=== PATIENT | male | born 1975 | race Two or more races ===

== ENCOUNTER 2020-11-16 08:15 | Inpatient (IN) | payer BC ==
[2020-11-29] MEDS ORDERED: cefOXitin 2 GM Vial ONE (06:46)
[2020-11-29] MEDS ORDERED: Succinylcholine 200 MG/10 ML MDV ONE (07:07)
[2020-11-29] MEDS ORDERED: Neostigmine Methylsulfate 1 MG/ML 5 ML Syringe ONE (07:07)
[2020-11-29] MEDS ORDERED: Dexamethasone 4 MG/ML SDV ONE (07:07)
[2020-11-29] MEDS ORDERED: Glycopyrrolate 0.2 MG/ML 5 ML MDV ONE (07:07)
[2020-11-29] MEDS ORDERED: Ondansetron 4 MG/2 ML SDV ONE (07:07)
[2020-11-29] MEDS ORDERED: fentaNYL 250 MCG/5 ML SDV ONE ×2 (07:07→09:27)
[2020-11-29] MEDS ORDERED: Propofol 200 MG/20 ML SDV ONE (07:07)
[2020-11-29] MEDS ORDERED: Rocuronium 50 MG/5 ML Vial ONE ×3 (07:07→11:08)
[2020-11-29] MEDS ORDERED: Scopolamine 1.5 MG Transdermal Patch TOP SCH (07:15)
[2020-11-29] MEDS ORDERED: Acetaminophen 500 MG Tab PO ONE (07:15)
[2020-11-29] MEDS ORDERED: Celecoxib 200 MG Cap PO ONE (07:15)
[2020-11-29] MEDS ORDERED: Dextrose 5%-Lactated Ringers 1,000 ML IV SCH ×2 (07:30→13:15)
[2020-11-29] MEDS ORDERED: cefOXitin 2 GM Vial IRR ONE ×3 (07:39→11:18)
[2020-11-29 07:56] LABS: HEMOGLOBIN A1C 7.5 % (4.5-6.2)
[2020-11-29] MEDS ORDERED: Albuterol/Ipratropium 3.0-0.5 MG/3 ML Neb Soln NEB ONE (08:00)
[2020-11-29] MEDS: cefOXitin 2 GM in Sodium Chloride 0.9% 50 ML IV ONE ×2 (08:45→08:46)
[2020-11-29] MEDS ORDERED: Magnesium Sulfate 7 GM in Sodium Chloride 0.9% 250 ML IV ONE (09:00)
[2020-11-29] MEDS ORDERED: Ketamine 500 MG/5 ML MDV IV SCH (09:00)
[2020-11-29] MEDS ORDERED: Ketamine 50 MG in Sodium Chloride 0.9% 49.5 ML IV SCH (09:00)
[2020-11-29] MEDS ORDERED: Lactated Ringers 1,000 ML ONE (09:02)
[2020-11-29] MEDS ORDERED: Sugammadex Sodium 200 MG/2 ML VIAL ONE (11:47)
[2020-11-29] MEDS ORDERED: hydrOXYzine HCL 100 MG/2 ML SDV IM ONE (12:08)
[2020-11-29] MEDS: Lactated Ringers 1,000 ML IV SCH ×2 (13:10→23:21)
[2020-11-29] MEDS ORDERED: Cyclobenzaprine 10 MG Tab PO PRN (13:12)
[2020-11-29] MEDS ORDERED: Albuterol/Ipratropium 3.0-0.5 MG/3 ML Neb Soln INH PRN (14:00)
[2020-11-29] MEDS ORDERED: diphenhydrAMINE 50 MG/ML SDV IVPUSH PRN (14:00)
[2020-11-29] MEDS ORDERED: Calcium Gluconate 10% 1 GM/10 ML SDV IVPUSH PRN (14:00)
[2020-11-29] MEDS ORDERED: 50% Dextrose in Water 50 ML Syringe IVPUSH PRN (14:00)
[2020-11-29] MEDS ORDERED: Metoclopramide 10 MG/2 ML SDV IVPUSH PRN (14:00)
[2020-11-29] MEDS ORDERED: Labetalol 20 MG/4 ML Syringe IVPUSH PRN (14:00)
[2020-11-29] MEDS ORDERED: Glucagon,Human Recombinant 1 MG Vial IM PRN (14:00)
[2020-11-29] MEDS ORDERED: Insulin Lispro 100 Unit/ML 3 ML KwikPen SUBCUT SCH (14:00)
[2020-11-29] MEDS ORDERED: HYDROmorphone 0.5 MG/0.5 ML Syringe IVPUSH PRN (14:00)
[2020-11-29] MEDS ORDERED: Acetaminophen 500 MG Tab PO PRN (14:00)
[2020-11-29] MEDS: Ondansetron 4 MG/2 ML SDV IVPUSH PRN (14:42)
[2020-11-29] MEDS: Albuterol/Ipratropium 3.0-0.5 MG/3 ML Neb Soln INH SCH ×2 (14:54→22:23)
[2020-11-29] MEDS: cefOXitin 2 GM in Sodium Chloride 0.9% 50 ML IV SCH ×2 (15:40→22:23)
[2020-11-29] MEDS ORDERED: Pantoprazole 40 MG Vial IVPUSH SCH (16:00)
[2020-11-29] MEDS ORDERED: MVI, Adult with Vitamin K 10 ML, Thiamine 200 MG, Zinc/Copper/Manganese/Selenium 1 ML i... IV SCH ×4 (16:00)
[2020-11-29] MEDS: Acetaminophen 500 MG Tab PO SCH (16:45)
[2020-11-29] MEDS: Heparin Sodium 5,000 Units/ML Vial SUBCUT SCH (16:45)
[2020-11-29] MEDS: Insulin Lispro 100 Unit/ML 3 ML KwikPen SUBCUT SCH ×2 (17:06→22:22)
[2020-11-29] MEDS: hydrOXYzine HCL 100 MG/2 ML SDV IM PRN ×2 (17:13→22:33)
[2020-11-29] MEDS: HYDROmorphone 1 MG/ML Syringe IV PRN (19:01)
[2020-11-29] MEDS: oxyCODONE 5 MG Tab PO PRN (20:19)
[2020-11-29] MEDS: traZODone 50 MG Tab PO SCH (22:25)
[2020-11-30] MEDS: Heparin Sodium 5,000 Units/ML Vial SUBCUT SCH (00:40)
[2020-11-30] MEDS: Acetaminophen 500 MG Tab PO SCH (00:40)
[2020-11-30] MEDS ORDERED: Acetaminophen Soln 650 MG/20.3 ML UD Cup PO PRN (01:08)
[2020-11-30] MEDS ORDERED: Iopamidol 612 MG/ML 50 ML SDV PO STA (01:52)
[2020-11-30] MEDS: Ondansetron 4 MG/2 ML SDV IVPUSH PRN ×2 (04:33→22:51)
[2020-11-30] MEDS: cefOXitin 2 GM in Sodium Chloride 0.9% 50 ML IV SCH ×3 (04:47→15:13)
[2020-11-30] MEDS: HYDROmorphone 1 MG/ML Syringe IV PRN (04:47)
[2020-11-30] MEDS: Insulin Lispro 100 Unit/ML 3 ML KwikPen SUBCUT SCH ×4 (05:05→22:00)
[2020-11-30] MEDS: Albuterol/Ipratropium 3.0-0.5 MG/3 ML Neb Soln INH SCH ×4 (07:11→21:16)
[2020-11-30] MEDS ORDERED: Ondansetron 4 MG Tab.DIS PO PRN (07:11)
[2020-11-30] MEDS: oxyCODONE 5 MG Tab PO PRN ×3 (07:34→19:13)
[2020-11-30] MEDS: Acetaminophen Soln 650 MG/20.3 ML UD Cup PO SCH ×2 (07:39→15:08)
[2020-11-30] MEDS ORDERED: Acetaminophen Soln 160 MG/5 ML UD Cup PO SCH (08:00)
--- NOTE | 2020-11-30 08:17 | PN ---
DATE OF SERVICE: 11/30/2020 SUBJECTIVE: Isi (Max) is postop day 1 following a sleeve gastrectomy. His upper GI was normal. Vital signs have been stable. Oral intake 860. Urine output 3835 via Sun catheter and CARLOS ENRIQUE put out 17 mL of a light red drainage. Pain has been controlled and he was given IV Dilaudid and oxycodone in addition to energy protocol. OBJECTIVE: GENERAL: Cat is a pleasant 45-year-old male. He is alert and oriented. VITAL SIGNS: Admission height 5 feet 10 inches, weight 503 pounds. BMI is 72. TPR 97.7, 77, 18, blood pressure 130/64. HEENT: Negative. NECK: Supple. HEART: Regular rate and rhythm. LUNGS: Clear. ABDOMEN: Dressings dry and intact. Abdominal binder is on, and CARLOS ENRIQUE drain as above. EXTREMITIES: Without peripheral edema. ASSESSMENT: Diagnostic laparoscopy with: 1. Lysis of adhesions. 2. Sleeve gastrectomy, first stage of duodenal switch. 3. Needle liver biopsy. 4. Placement of Vicryl mesh. POSTOPERATIVE DIAGNOSES: Morbid obesity with excess of omental fat precluding visualization of the duodenum, marked hepatomegaly, and extensive adhesions to periumbilical mesh. Date of procedure 11/29/2020. Surgeon, Rod Holland MD. PLAN: 1. Dressing off. May shower. 2. Step-2 gastric bypass diet without cereal. 3. Discontinue D5 LR IV. 4. Lactated Ringer. Decrease rate to 100 mL/hr. 5. Discontinue Sun catheter. 6. Discontinue heparin. 7. Lovenox 100 mg daily. 8. Discontinue cardiac monitoring. 9. Communication order, 3 med cups per hour. 10.Atarax 50 mg q.4 hours p.r.n. pain. 11.Communication order to use energy protocol, Vistaril, or Atarax for pain before narcotics, and use narcotics when everything else is tried first, and use Flexeril for back pain instead of oxycodone. Encouraged ambulation. Cat was unable to use his incentive spirometer. He was taught how to use it. He states he did not use it during the night. 12.Lovenox 100 subcu will be sent to his pharmacy in case he would need prior authorization. This will be checked on at clinic. REVIEW OF SYSTEMS: Remainder of review of systems negative for any pertinent positives or negatives. Eduarda Lund PA-C /[id number]
[2020-11-30] MEDS: SCOPOLAMINE PATCH CHECK TOP SCH (09:03)
[2020-11-30] MEDS: buPROPion 150 MG Tab.ER PO SCH (09:03)
[2020-11-30] MEDS: Celecoxib 200 MG Cap PO SCH ×2 (09:03→21:13)
--- NOTE | 2020-11-30 09:04 | CR ---
[facility] HISTORY: Post gastric surgery FINDINGS: Patient swallowed water-soluble contrast. Upright views of the abdomen show no evidence of extravasation or obstruction. There is contrast through the distal stomach and duodenum. There is a surgical drain left upper quadrant IMPRESSION: Status post gastric surgery No extravasation or obstruction seen
[2020-11-30] MEDS: Losartan 50 MG Tab PO SCH (09:05)
[2020-11-30] MEDS: Enoxaparin 100 MG/1 ML Syringe SUBCUT SCH (09:07)
[2020-11-30] MEDS: hydrOXYzine HCl 25 MG Tab PO PRN ×3 (09:12→22:35)
[2020-11-30] MEDS: traMADol 50 MG Tab PO PRN ×2 (10:40→22:35)
[2020-11-30] MEDS: Lactated Ringers 1,000 ML IV SCH (15:10)
[2020-11-30] MEDS ORDERED: MVI, Adult with Vitamin K 10 ML, Thiamine 200 MG, Zinc/Copper/Manganese/Selenium 1 ML i... IV SCH ×4 (16:00)
[2020-11-30] MEDS ORDERED: Pantoprazole 40 MG Delayed-Release Granules 1 Packet PO SCH (16:30)
[2020-11-30] MEDS: traZODone 50 MG Tab PO SCH (21:13)
[2020-12-01] MEDS: Acetaminophen Soln 650 MG/20.3 ML UD Cup PO SCH ×2 (00:22→09:19)
[2020-12-01] MEDS: oxyCODONE 5 MG Tab PO PRN ×2 (02:40→09:19)
[2020-12-01] MEDS: Lactated Ringers 1,000 ML IV SCH (03:36)
[2020-12-01] MEDS: Insulin Lispro 100 Unit/ML 3 ML KwikPen SUBCUT SCH ×2 (04:32→09:22)
[2020-12-01] MEDS: Albuterol/Ipratropium 3.0-0.5 MG/3 ML Neb Soln INH SCH ×2 (07:00→12:58)
[2020-12-01] MEDS ORDERED: Cyanocobalamin (Vitamin B12) 1,000 MCG/ML SDV IM ONE (09:00)
[2020-12-01] MEDS: buPROPion 150 MG Tab.ER PO SCH (09:20)
[2020-12-01] MEDS: Losartan 50 MG Tab PO SCH (09:20)
[2020-12-01] MEDS: Enoxaparin 100 MG/1 ML Syringe SUBCUT SCH (09:21)
[2020-12-01] MEDS: SCOPOLAMINE PATCH CHECK TOP SCH (09:21)
[2020-12-01] MEDS: Celecoxib 200 MG Cap PO SCH (09:21)
--- NOTE | 2020-12-11 13:37 | DISCH ---
FINAL DIAGNOSES: 1. Morbid obesity. 2. Marked hepatomegaly. 3. Extensive intraabdominal adhesions. 4. History of type 2 diabetes mellitus. 5. History of hypertension. 6. History of chronic venous ulcers. 7. History of osteoarthritis of knees. 8. History of depression and anxiety. 9. Obstructive sleep apnea. OPERATIVE PROCEDURE: This was done on 11/29, diagnostic laparoscopy with lysis of adhesions with: 1. Sleeve gastrectomy (first stage duodenal switch). 2. Mendel-Cut needle liver biopsy. 3. Placement of Vicryl mesh to limit recurrent adhesion formation between the pelvic and abdominal wall and underlying viscera. SUMMARY: This is a 45-year-old male presenting with longstanding morbid obesity. Preoperatively weight was 504 pounds with a BMI in the 76 range. On the day of surgery, the patient underwent a sleeve gastrectomy, the second stage of the duodenal switch, specifically the duodenal ileostomy and could not be completed at this point due to inability to visualize the duodenum due to large liver and quite massive omentum. He had quite extensive omental adhesions between some abdominal wall mesh used for previous umbilical hernia and the omentum which were taken down and needle biopsies also done to limit recurrent adhesion formation to facilitate subsequent duodenal ileostomy. Vicryl mesh was placed across the area of adhesion formation between abdominal and pelvic wall. Preoperatively, the patient was on Victoza. Postoperatively, he has not required any insulin coverage or Victoza with the blood sugars being in the 130 to 160 range without any specific treatments, so he will go home off on the Victoza. Otherwise, he can continue his usual medications plus oxycodone 5 mg q.4 hours p.r.n., Lovenox 100 mg daily x10 days as prophylaxis against DVT, Atarax 50 mg q.4 hours p.r.n. pain #40. Instructed to hold his vitamins and other supplements until after first appointment, which will be with Eduarda Lund at [facility] on 12/10/2020. We would typically plan to do the second stage of the duodenal switch somewhere in the range of 3 to 6 months, relatively a small amount of weight loss that will facilitate the formation of the duodenal ileostomy which combined with sleeve gastrectomy to a duodenal switch and this should not provide quite a profound amount of weight loss of long-term. /[id number]
--- NOTE | 2020-12-17 15:51 | OR ---
DATE OF PROCEDURE: 11/29/2020 SURGEON: Rod Holland MD PREOPERATIVE DIAGNOSIS: Morbid obesity. POSTOPERATIVE DIAGNOSES: 1. Morbid obesity with excessive omental fat precluding visualization of the duodenum. 2. Marked hepatomegaly. 3. Extensive adhesions to periumbilical mesh. OPERATIVE PROCEDURE: 1. Diagnostic laparoscopy with lysis of extensive adhesions: a. Sleeve gastrectomy (33346). b. Mendel-Cut needle liver biopsy (78242). c. Placement of Vicryl mesh underneath the pre-existing abdominal wall mesh at the site of adhesion formation to limit recurrent adhesion formation between the pelvic and abdominal ibarra and underlying viscera. ANESTHESIA: General. DRIVE IN THEATER ATTENDANT: Eduarda Lund PA-C. INDICATION FOR PROCEDURE: This is a 45-year-old male presenting with extensive morbid obesity with a plan to proceed with a duodenal switch. The plan is to proceed with diagnostic laparoscopy with laparotomy as necessary and formation of duodenal switch. He is aware that particularly in a male that it is not infrequent that the duodenal switch needs to be staged due to inability to satisfactorily mobilize the small bowel up to the level of the duodenum or other problems with regard to the duodenum such as inadequate visualization, in which case the sleeve gastrectomy would be performed today and the duodenal ileostomy sometime later. Potential risks per se including bleeding, infection, leaks from the various GI tract closures, problems with bowel obstruction were all reviewed along with the possibility of cardiopulmonary, septic, or hemorrhagic complications leading to were all discussed and the patient wishes to proceed. DESCRIPTION OF PROCEDURE: The patient was taken to the operating room, placed in a supine position after general endotracheal anesthesia was induced. A Sun catheter was inserted and the patient converted to lithotomy position. The abdomen was then prepped and draped. A 20 cm inferior and 5 cm left of the xiphoid process, a transverse incision was made. Peritoneal cavity entered under direct visualization with an Optiview trocar, inflated to 15 mmHg pressure with CO2. Laparoscope was reinserted. No underlying trocar insertion site injuries were seen. Following this, bilateral subcostal transversus abdominis plane blocks were placed and 5 additional trocars were placed across the upper and mid abdomen. The patient had previous mesh repair of a periumbilical hernia and had more or less florid adhesions between the mesh and the omentum or extensive period of the mid and right abdomen. These were then taken down with Harmonic scalpel until all omental adhesions were freed up. The area around the duodenum was examined. The extent of omentum at this point clearly precluded visualization of the duodenum, and at this point, decision made to proceed with a sleeve gastrectomy leaving the duodenal ileostomy for a later point. The patient was noted to have marked hepatomegaly and Mendel-Cut needle biopsies obtained from left lobe of the liver. Minimal bleeding from the biopsy sites was controlled with electrocautery. The greater omentum along the mid-greater curvature was then divided away flush with the edge of the stomach with Harmonic scalpel. This dissection continued proximally up to and through the highest and posterior short gastric vessels. The fundus at this time was then skeletonized away from the left rupinder. The dissection was then continued down distally removing the omentum down to a point roughly 2 cm proximal to the pylorus. The stomach was then marked out on its anterior aspect across the antrum and then underneath the incisura angularis with electrocautery for initial marking for the first 2 firings of the ANTONIO marleni. This was measured in such a way that there was avoidance of overtightening of the incisura angularis getting 2 cm proximal to the pylorus. The antrum was divided. This continued leftward underneath the incisura angularis with ANTONIO black loads. At that point, then a 32-Maltese suction tube was then placed per Anesthesia orally and then manipulated along the lesser curvature of stomach and into the antrum. This was then pulled up flush with the lesser curvature, resection was applied. Remainder of the sleeve gastrectomy staple line was then accomplished with a combination of reinforced black and purple loads, and upon completion of the resection, the stomach was placed off to the side. The sleeve gastrectomy staple line was then inspected and found to be intact and the suction tube was taken off suction and the staple line reinforced with fibrin sealant and omentum pulled up against the edges of the staple line as well. A leak test was accomplished with injection of air into the sleeve gastrectomy until it was densely distended, and while it was submerged with antibiotic-containing saline solution, no leaks or bleeding problems were noted. Orogastric tube was then removed. Sleeve gastrectomy specimen was then delivered through the left lateral trocar site. Through that site, then also single Juan-Bone drain was placed across the area of the esophagogastric junction and from there up into the splenic fossa. The trocars were then sequentially removed, the peritoneal cavity deflated. Incisions were closed with 4-0 Vicryl skin stitch which was also used to fix the drain and the patient was taken to the recovery room in satisfactory condition. Physician real estate executive assistant, Eduarda Lund, played an essential role in assisting in this case, helping to position the patient, retract structures as needed, as well as suturing and cutting sutures when indicated. Her presence improved patient safety and decreased operative time. Rod Holland MD /[id number]
--- NOTE | 2020-12-19 08:57 | CR ---
[facility] HISTORY: Post gastric surgery FINDINGS: Patient swallowed water-soluble contrast. Upright views of the abdomen show no evidence of extravasation or obstruction. There is contrast through the distal stomach and duodenum. There is a surgical drain left upper quadrant IMPRESSION: Status post gastric surgery No extravasation or obstruction seen Dictated by: Andre Asher MD [facility]ENTER[facility]
== END 2020-12-01 11:55 | disposition home or self-care (01) | DRG 403 ==
LOC: EDSEX 11-29 07:01 → JP.SDS 11-29 07:01 → JP.SDSSCHI 11-29 07:01 → EDSTATUS 11-29 09:45 → JP.MS 11-29 11:50 → JP.SDSSCHI 11-29 11:50 → UNDOADMIN 11-29 11:50
PROVIDERS: ADMIT Surgery; ATTEND Surgery
PROC: 0DB64Z3 Excision of Stomach, Percutaneous Endoscopic Approach, Vertical (ICD-10-PCS; principal; 2020-11-29)
PROC: 0FB24ZX Excision of Left Lobe Liver, Percutaneous Endoscopic Approach, Diagnostic (ICD-10-PCS; 2020-11-29)
PROC: 3E0M45Z Introduction of Adhesion Barrier into Peritoneal Cavity, Percutaneous Endoscopic Approach (ICD-10-PCS; 2020-11-29)
PROC: 0DNU4ZZ Release Omentum, Percutaneous Endoscopic Approach (ICD-10-PCS; 2020-11-29)
DX: E66.01 Morbid (severe) obesity due to excess calories (principal); E11.9 Type 2 diabetes mellitus without complications; E78.5 Hyperlipidemia, unspecified; G47.33 Obstructive sleep apnea (adult) (pediatric); I10 Essential (primary) hypertension; F41.9 Anxiety disorder, unspecified; K59.00 Constipation, unspecified; F32.9 Major depressive disorder, single episode, unspecified; N52.9 Male erectile dysfunction, unspecified; K21.9 Gastro-esophageal reflux disease without esophagitis; M10.9 Gout, unspecified; G47.00 Insomnia, unspecified; Z98.890 Other specified postprocedural states; Z79.899 Other long term (current) drug therapy; Z88.8 Allergy status to other drugs, medicaments and biological substances; Z87.891 Personal history of nicotine dependence; Z68.45 Body mass index [BMI] 70 or greater, adult; R16.0 Hepatomegaly, not elsewhere classified; M17.0 Bilateral primary osteoarthritis of knee
CPT/HCPCS: 36415; 82947; 83036; 86850; 86900; 86901; 88307; 88313; 93005; 94640; 94762; A9270-GY; C1781; C9113; J0171; J0330; J0694; J1100; J1170; J1644; J1650; J1815; J1815-GY; J2405; J2704; J2710; J2795; J3010; J3410; J3411; J3420; J3475; J3490; J7030; J7050; J7120; J7121; J7620-GY; Q9967

== ENCOUNTER 2023-05-07 07:27 | Inpatient (IN) | payer BC ==
[2023-05-07] MEDS ORDERED: Celecoxib 200 MG Cap PO ONE (07:45)
[2023-05-07] MEDS ORDERED: Scopolamine 1.5 MG Transdermal Patch TOP ONE (07:45)
[2023-05-07 07:55] LABS: HEMATOCRIT 41.3 % (38.4-49.7); HEMOGLOBIN 13.6 g/dL (12.9-16.9); MEAN CORPUSCULAR HEMOGLOBIN 28.9 pg (31.6-35.5); MEAN CORPUSCULAR HGB CONC 32.9 g/dL (31.6-35.5); MEAN CORPUSCULAR VOLUME 87.7 fL (81.4-99.0); RED BLOOD CELL COUNT 4.71 M/uL (4.14-5.76); WHITE BLOOD CELL COUNT,WBC 5.8 K/uL (3.2-11.0)
[2023-05-07] MEDS ORDERED: Ondansetron 4 MG/2 ML SDV ONE (07:55)
[2023-05-07] MEDS ORDERED: Dexamethasone 4 MG/ML SDV ONE (07:55)
[2023-05-07] MEDS ORDERED: Rocuronium 50 MG/5 ML Vial ONE ×2 (07:55→12:05)
[2023-05-07] MEDS ORDERED: Glycopyrrolate 0.2 MG/ML 5 ML MDV ONE (07:55)
[2023-05-07] MEDS ORDERED: Succinylcholine 200 MG/10 ML MDV ONE (07:55)
[2023-05-07] MEDS ORDERED: Neostigmine Methylsulfate 1 MG/ML 5 ML Syringe ONE (07:55)
[2023-05-07] MEDS ORDERED: Propofol 200 MG/20 ML SDV ONE (07:55)
[2023-05-07] MEDS ORDERED: fentaNYL 250 MCG/5 ML SDV ONE ×2 (07:57→12:28)
[2023-05-07] MEDS ORDERED: Albuterol/Ipratropium 3.0-0.5 MG/3 ML Neb Soln NEB ONE (08:00)
[2023-05-07] MEDS ORDERED: Dextrose 5%-Lactated Ringers 1,000 ML IV SCH (08:00)
[2023-05-07 08:08] LABS: HEMOGLOBIN A1C 5.4 % (4.5-6.2)
[2023-05-07 08:15] LABS: A/G RATIO 0.8 (1.2-2.2); ALANINE AMINOTRANSFERASE,ALT 23 U/L (12-78); ALBUMIN 3.5 g/dL (3.4-5.0); ALKALINE PHOSPHATASE 95 U/L (46-116); ANION GAP 8.4 mmol/L (5.0-14.0); ASPARTATE AMNIOTRANSFERASE,AST 21 U/L (15-37); BILIRUBIN TOTAL 0.4 mg/dL (0.2-1.0); BLOOD UREA NITROGEN,BUN 12 mg/dL (7-18); CALCIUM 8.2 mg/dL (8.5-10.1); CARBON DIOXIDE,CO2 31 mmol/L (21-32); CHLORIDE,CL 102 mmol/L (100-108); CREATININE 0.8 mg/dL (0.8-1.3); ESTIMATED GFR 109 mL/min (>60); GLUCOSE RANDOM 92 mg/dL (74-106); MAGNESIUM 1.9 mg/dL (1.8-2.4); PHOSPHORUS 3.9 mg/dL (2.5-4.9); POTASSIUM,K 3.8 mmol/L (3.6-5.2); PROTEIN TOTAL,TP 7.8 g/dL (6.4-8.2); SODIUM,NA 141 mmol/L (140-148)
[2023-05-07] MEDS ORDERED: cefOXitin 2 GM in Sodium Chloride 0.9% 50 ML IV ONE (09:00)
[2023-05-07] MEDS ORDERED: Ketamine 500 MG/5 ML MDV IV SCH (09:30)
[2023-05-07] MEDS ORDERED: Ketamine 21 MG in Sodium Chloride 0.9% 19.79 ML IV SCH (09:30)
[2023-05-07] MEDS ORDERED: cefOXitin 2 GM Vial ONE (10:14)
[2023-05-07] MEDS ORDERED: diphenhydrAMINE 50 MG/ML SDV IVPUSH PRN ×2 (11:36→15:00)
[2023-05-07] MEDS ORDERED: Ondansetron 4 MG/2 ML SDV IVPUSH PRN ×2 (11:36→15:00)
[2023-05-07] MEDS ORDERED: diphenhydrAMINE 25 MG Cap PO PRN (11:36)
[2023-05-07] MEDS ORDERED: Naloxone 0.4 MG/ML SDV IVPUSH PRN (11:36)
[2023-05-07] MEDS ORDERED: Bupivacaine 0.5% 50 ML MDV ONE (11:37)
[2023-05-07] MEDS ORDERED: Meropenem 500 MG SDV ONE (11:37)
[2023-05-07] MEDS ORDERED: Lidocaine 1% with EPINEPHrine 1:100,000 50 ML MDV ONE (11:37)
[2023-05-07] MEDS ORDERED: Naloxone 0.4 MG/ML SDV IV PRN (12:00)
[2023-05-07] MEDS: HYDROmorphone/Normal Saline 6 MG/30 ML PCA Vial IV PRN ×2 (12:32→22:31)
[2023-05-07] MEDS ORDERED: Acetaminophen 500 MG Tab PO PRN (15:00)
[2023-05-07] MEDS ORDERED: Metoclopramide 10 MG/2 ML SDV IVPUSH PRN (15:00)
[2023-05-07] MEDS ORDERED: Albuterol/Ipratropium 3.0-0.5 MG/3 ML Neb Soln INH PRN (15:00)
[2023-05-07] MEDS ORDERED: Labetalol 20 MG/4 ML Syringe IVPUSH PRN (15:00)
[2023-05-07] MEDS ORDERED: hydrOXYzine HCL 100 MG/2 ML SDV IM PRN (15:00)
[2023-05-07] MEDS ORDERED: Pantoprazole 40 MG Vial IVPUSH SCH (16:00)
[2023-05-07] MEDS: Albuterol/Ipratropium 3.0-0.5 MG/3 ML Neb Soln INH SCH ×2 (16:13→22:33)
[2023-05-07] MEDS: MVI, Adult with Vitamin K 10 ML, Thiamine 200 MG, Zinc/Copper/Manganese/Selenium 1 ML i... IV SCH ×4 (16:13)
[2023-05-07] MEDS: SCOPOLAMINE PATCH CHECK TOP SCH (16:14)
[2023-05-07] MEDS: cefOXitin 2 GM in Sodium Chloride 0.9% 50 ML IV SCH ×2 (16:14→22:34)
[2023-05-07] MEDS: Cyclobenzaprine 10 MG Tab PO PRN (17:18)
[2023-05-07] MEDS: Heparin Sodium 5,000 Units/ML Vial SUBCUT SCH (17:20)
[2023-05-07] MEDS: Acetaminophen 500 MG Tab PO SCH (19:54)
[2023-05-07] MEDS: Dextrose 5%-Lactated Ringers 1,000 ML IV SCH (22:37)
[2023-05-08] MEDS ORDERED: Iopamidol 612 MG/ML 30 ML SDV PO ONE (02:07)
[2023-05-08] MEDS: Heparin Sodium 5,000 Units/ML Vial SUBCUT SCH ×3 (02:30→17:14)
[2023-05-08] MEDS: Acetaminophen 500 MG Tab PO SCH ×3 (05:02→19:35)
[2023-05-08] MEDS: Dextrose 5%-Lactated Ringers 1,000 ML IV SCH (05:04)
[2023-05-08] MEDS: cefOXitin 2 GM in Sodium Chloride 0.9% 50 ML IV SCH ×4 (05:05→22:24)
[2023-05-08] MEDS: Albuterol/Ipratropium 3.0-0.5 MG/3 ML Neb Soln INH SCH ×5 (07:11→20:00)
[2023-05-08] MEDS: SCOPOLAMINE PATCH CHECK TOP SCH (08:23)
[2023-05-08] MEDS: Celecoxib 200 MG Cap PO SCH ×3 (08:24→20:00)
[2023-05-08] MEDS ORDERED: Ondansetron 4 MG Tab.DIS PO PRN (08:37)
[2023-05-08] MEDS: Hyoscyamine 0.125 MG Tab.SL SL SCH ×4 (09:33→21:35)
[2023-05-08] MEDS: Cyclobenzaprine 10 MG Tab PO PRN ×2 (11:09→19:34)
[2023-05-08] MEDS ORDERED: Dextrose 5%-Lactated Ringers 1,000 ML IV SCH (12:00)
[2023-05-08] MEDS: HYDROmorphone/Normal Saline 6 MG/30 ML PCA Vial IV PRN (14:35)
[2023-05-08] MEDS: Pantoprazole 40 MG Tab.CR PO SCH (15:38)
[2023-05-08] MEDS: MVI, Adult with Vitamin K 10 ML, Thiamine 200 MG, Zinc/Copper/Manganese/Selenium 1 ML i... IV SCH ×4 (15:38)
[2023-05-08] MEDS: oxyCODONE 5 MG Tab PO PRN (22:24)
[2023-05-09] MEDS: oxyCODONE 5 MG Tab PO PRN ×5 (02:47→20:58)
[2023-05-09] MEDS: Cyclobenzaprine 10 MG Tab PO PRN (02:47)
[2023-05-09] MEDS: Heparin Sodium 5,000 Units/ML Vial SUBCUT SCH ×3 (02:48→18:20)
[2023-05-09] MEDS: Hyoscyamine 0.125 MG Tab.SL SL SCH ×4 (05:54→21:45)
[2023-05-09] MEDS: Acetaminophen 500 MG Tab PO SCH ×3 (05:55→20:02)
[2023-05-09] MEDS: cefOXitin 2 GM in Sodium Chloride 0.9% 50 ML IV SCH ×2 (05:55→11:23)
[2023-05-09] MEDS: Celecoxib 200 MG Cap PO SCH ×2 (08:22→20:03)
[2023-05-09] MEDS: Docusate Sodium 100 MG Cap PO SCH ×2 (08:23→20:03)
[2023-05-09] MEDS: Bisacodyl 5 MG Tab PO SCH ×2 (08:24→20:03)
[2023-05-09] MEDS: SCOPOLAMINE PATCH CHECK TOP SCH (08:32)
[2023-05-09] MEDS ORDERED: Cyanocobalamin (Vitamin B12) 1,000 MCG/ML SDV IM ONE (09:00)
[2023-05-09] MEDS: Albuterol/Ipratropium 3.0-0.5 MG/3 ML Neb Soln INH SCH ×4 (09:24→20:02)
[2023-05-09] MEDS: hydrOXYzine HCl 25 MG Tab PO PRN ×2 (11:33→20:59)
[2023-05-09] MEDS: Cyclobenzaprine 10 MG Tab PO SCH ×2 (13:43→21:45)
[2023-05-09] MEDS: Pantoprazole 40 MG Tab.CR PO SCH (16:38)
[2023-05-09] MEDS ORDERED: diphenhydrAMINE 25 MG Cap PO PRN (22:59)
[2023-05-10] MEDS: Heparin Sodium 5,000 Units/ML Vial SUBCUT SCH ×2 (01:12→09:53)
[2023-05-10] MEDS: oxyCODONE 5 MG Tab PO PRN ×4 (01:12→11:20)
[2023-05-10] MEDS: Acetaminophen 500 MG Tab PO SCH ×2 (05:12→11:21)
[2023-05-10] MEDS: Cyclobenzaprine 10 MG Tab PO SCH (05:13)
[2023-05-10] MEDS: Hyoscyamine 0.125 MG Tab.SL SL SCH ×2 (05:13→09:54)
[2023-05-10] MEDS: Albuterol/Ipratropium 3.0-0.5 MG/3 ML Neb Soln INH SCH ×2 (07:19→11:27)
[2023-05-10] MEDS: Docusate Sodium 100 MG Cap PO SCH (08:22)
[2023-05-10] MEDS: Bisacodyl 5 MG Tab PO SCH (08:22)
[2023-05-10] MEDS: Celecoxib 200 MG Cap PO SCH (08:22)
[2023-05-10] MEDS ORDERED: Magnesium Hydroxide 400 MG/5 ML Susp 30 ML Cup PO ONE (09:00)
[2023-05-10] MEDS ORDERED: Hydrocortisone 1% Crm 30 GM Tube TOP SCH (09:00)
[2023-05-10] MEDS ORDERED: Magnesium Hydroxide 400 MG/5 ML Susp 30 ML Cup PO PRN (15:00)
== END 2023-05-10 12:15 | disposition home or self-care (01) | DRG 403 ==
LOC: JP.SDSSCHI 07:27 → JP.2SS 15:35
PROVIDERS: ADMIT Surgery; ATTEND Surgery
PROC: 0DB60Z3 Excision of Stomach, Open Approach, Vertical (ICD-10-PCS; principal; 2023-05-07)
PROC: 3E0M05Z Introduction of Adhesion Barrier into Peritoneal Cavity, Open Approach (ICD-10-PCS; 2023-05-07)
PROC: 0D160ZA Bypass Stomach to Jejunum, Open Approach (ICD-10-PCS; 2023-05-07)
PROC: 0WQF0ZZ Repair Abdominal Wall, Open Approach (ICD-10-PCS; 2023-05-07)
PROC: 0WJF4ZZ Inspection of Abdominal Wall, Percutaneous Endoscopic Approach (ICD-10-PCS; 2023-05-07)
DX: E66.01 Morbid (severe) obesity due to excess calories (principal); K55.9 Vascular disorder of intestine, unspecified; K43.0 Incisional hernia with obstruction, without gangrene; I83.009 Varicose veins of unspecified lower extremity with ulcer of unspecified site; G47.33 Obstructive sleep apnea (adult) (pediatric); E11.9 Type 2 diabetes mellitus without complications; I10 Essential (primary) hypertension; F41.9 Anxiety disorder, unspecified; J45.990 Exercise induced bronchospasm; F32.A Depression, unspecified; K21.9 Gastro-esophageal reflux disease without esophagitis; E78.5 Hyperlipidemia, unspecified; E66.9 Obesity, unspecified; M17.12 Unilateral primary osteoarthritis, left knee; Z79.899 Other long term (current) drug therapy; Z79.4 Long term (current) use of insulin; Z88.8 Allergy status to other drugs, medicaments and biological substances; Z68.43 Body mass index [BMI] 50.0-59.9, adult; Z87.891 Personal history of nicotine dependence
CPT/HCPCS: 36415; 74240; 74240-26; 80053; 82947; 83036; 83735; 84100; 85027; 86850; 86900; 86901; 94640; A9270-GY; C9113; J0131; J0171; J0330; J0694; J1100; J1170; J1644; J2185; J2405; J2704; J2710; J2765; J2795; J3010; J3410; J3411; J3420; J3490; J7121; J7620; Q9967